=== PATIENT | female | born 1935 | race Caucasian/White ===

== ENCOUNTER → 2016-08-20 | Outpatient (CLI) | payer OTHER ==
[~2016-08-20] MED LIST: ADVAIR 100-501 EACH IH; ADVAIR 1001 DISK W/D PO; ALLEGRA PO; AMLODIPINE BES2.5 MG PO; APRESOLINE PO; ASPIRIN PO; ASPIRIN81 M1 PO; ASPIRIN81 M2 PO; ATENOLOL PO; AZITHROMYCIN1 GM PO; BETAPACE AF PO; BETAPACE80 MG PO; CARAFATE1 G PO; CENTRUM SILVER PO; DEMEROL PO; DEMEROL50 MG PO; HYDRALAZINE HC100 MG PO; HYDRALAZINE HCL50 MG PO; IMDUR PO; IMDUR-ER60 MG PO; KLONOPIN PO; KLONOPIN0.5 MG PO; LASIX20 MG PO; LORTAB 10/500 T1 TAB PO; METOPROLOL TART25 MG PO; NASACORT AQ16.5 GM; NASACORT10.8 ML; NITROLINGUAL; NITROLINGUAL12 G1 TL; PLAVIX PO; PREDNISONE PO; SINGULAIR PO; TIKOSYN250 MCG PO; TOFRANIL PO; TRIAMCINOLONE; ZETIA PO; ZYRTEC PO; ZYRTEC10 M2 PO
--- NOTE | ~2016-08-20 | XA30 ---
[facility] A Service of [facility] RADIOLOGY TEXT RESULTS PATIENT: KAYLI SÁNCHEZ LOCATION: CIVR : 31 UNIT #: [id number] AGE: [address]: Florencio Moe MD SEX: F ORDER DR: [id number] [facility] [address] [place], [place] [address] [id number] O MR#: [id number] Acc #: [id number] NAME: KAYLI SÁNCHEZ : 1935 SEX: F STUDY DATE/TIME: 08/20/2016 10:29 UNIT: [facility] ROOM: STUDY DESCRIPTION: XA Arthrocentesis Major Joint Attending Physician: Florencio Moe M.D. Ordering Physician: Florencio Moe M.D. Primary Care Physician: Subha Jean M.D. MEDICAL IMAGING REPORT This report is preliminary unless electronic signature is present EXAM Fluoroscopically guided left hip injection INDICATION Left hip pain. PROCEDURE The risks, benefits, and alternatives to the procedure were explained to the patient, and signed, informed consent was obtained. She was placed supine on the angiographic table, prepped and draped in the usual sterile fashion. Time-out was performed as per protocol. Skin and subcutaneous tissues were anesthetized with buffered lidocaine and a 22-gauge spinal needle was advanced into the joint space. Contrast was injected which confirmed location within the joint space and I instilled a combination of lidocaine, Bupivacaine and Depo-Medrol. Needle was then removed and manual pressure was applied until hemostasis was obtained. Total fluoroscopy time was 0.2 minutes. AK was 2 mGy. IMPRESSION Technically successful fluoroscopically guided left hip injection as noted above. Fluoroscopy was used during the procedure and permanent images were saved. Dictated by... Bailey Priest M.D. THIS IS AN ELECTRONICALLY VERIFIED REPORT Bailey Priest M.D. at 08/21/2016 5:11 PM AFF/monae TD: 08/21/2016 10:26 [facility] A Service of [facility] RADIOLOGY TEXT RESULTS PATIENT: KAYLI SÁNCHEZ LOCATION: [facility] #: [id number] : 33 UNIT #: [id number] AGE: [address]: Florencio Moe MD SEX: F ORDER DR: JOB #: [id number] MEDICAL IMAGING REPORT Page 1 of 1 COPY
== END | disposition home or self-care (01) ==
LOC: CIVR 09:31
PROC: 3E0U33Z Introduction of Anti-inflammatory into Joints, Percutaneous Approach (ICD-10-PCS; principal; 2016-08-20)
PROC: 3E0U3BZ Introduction of Anesthetic Agent into Joints, Percutaneous Approach (ICD-10-PCS; 2016-08-20)
DX: M16.12 Unilateral primary osteoarthritis, left hip (principal)
CPT/HCPCS: 77002; 87070; 87205; J1030; Q9967